=== PATIENT | male | born 1935 | race Caucasian/White ===

== ENCOUNTER 2016-06-04 10:36 | Emergency (ER) | payer OTHER ==
[~2016-06-04] VITALS: Ht 175.3 cm; Wt 66.0 kg
[2016-06-04 10:45] VITALS: BP 149/86; PULSE 72; RESP 16; TEMP 97.8; O2SAT 97
[2016-06-04] MEDS ORDERED: ALLO300T2 PO (10:53)
[2016-06-04] MEDS ORDERED: LEVO100T5 PO (10:53)
[2016-06-04] MEDS ORDERED: GABA400C5 PO (10:53)
[2016-06-04] MEDS ORDERED: MULTCAP13 PO (10:53)
--- NOTE | 2016-06-04 11:19 | PD ---
HPI Chief Complaint: Skin Problem Time Seen by Provider: 11:19 Travel History International Travel<30 days: No Contact w/Intl Traveler<30days: No Traveled to known affect area: No History of Present Illness HPI 81-year-old male with PMH of DM presents to the ED for evaluation of 2 day history of laceration of the right heel. Patient states that he is unsure when the wound occurred. He states that he has very little sensation in his foot secondary to diabetic neuropathy. He denies fever or chills. He is unsure of the date of his last tetanus immunization. He's been treating by keeping the wound clean, applying antibiotic ointment and soaking in Epsom salts no improvement of his symptoms. Patient does not see a net wpf developer. PFSH Past Medical History Diminished Hearing: No Gout: Yes Neurologic: Yes (neuropathy) Thyroid Disease: Yes Influenza Vaccination: Yes ?: Not Past Surgical History Surgical History: No Previous Surgery Social History Alcohol Use: Yes (occ) Tobacco Use: No Allergies-Medications (Allergen,Severity, Reaction): Coded Allergies: No Known Allergies (Unverified , 06/04/16) Reported Meds & Prescriptions Reported Meds & Active Scripts Active Clindamycin (Clindamycin HCl) 300 Mg Cap 300 Mg PO Q6H 7 Days Reported Allopurinol 300 Mg Tab 300 Mg PO DAILY Multi Complete (Multiple Vitamins W/ Minerals) 1 Cap Cap 1 Tab PO DAILY Levothyroxine (Levothyroxine Sodium) 100 Mcg Tab 100 Mcg PO DAILY Gabapentin 400 Mg Cap 400 Cap PO TID Review of Systems Except as stated in HPI: all other systems reviewed are Neg Physical Exam Narrative GENERAL: Well-nourished, well-developed white male appearing younger than his stated age in no acute distress. SKIN: Warm and dry. HEAD: Normocephalic. EYES: No scleral icterus. No injection or drainage. NECK: Supple, trachea midline. No JVD or lymphadenopathy. CARDIOVASCULAR: Regular rate and rhythm without murmurs, gallops, or rubs. RESPIRATORY: Breath sounds equal bilaterally. No accessory muscle use. GASTROINTESTINAL: Abdomen soft, non-tender, nondistended. MUSCULOSKELETAL: No cyanosis, or edema. FOCUSED RIGHT LOWER EXTREMITY EXAM: 2+ DP pulse. There is a 2 cm superficial laceration on the plantar aspect of the right heel. Surrounded by a small area of erythema. Mild tenderness to palpation. No warmth, active bleeding or discharge. Mild edema to the medial malleolus. No popliteal LAD. No limitation to ROM. Sensation intact to firm touch. Cap refill less than 2 seconds. BACK: Nontender without obvious deformity. No CVA tenderness. Data Data Last Documented VS Vital Signs Date Time Temp Pulse Resp B/P Pulse Ox O2 Delivery O2 Flow Rate FiO2 06/04/16 10:45 97.8 72 16 149/86 97 Orders Tetanus/Diphtheria Tox Adult (Tetanus/Di (06/04/16 11:30) MDM Medical Decision Making Medical Screen Exam Complete: Yes Emergency Medical Condition: Yes Differential Diagnosis laceration versus foreign body versus cellulitis versus other Narrative Course 81-year-old male with PMH of DM presents to the ED for evaluation of 2 day history of laceration of the right heel. Patient states that he is unsure when the wound occurred. He states that he has very little sensation in his foot secondary to diabetic neuropathy. He denies fever or chills. He is unsure of the date of his last tetanus immunization. He's been treating by keeping the wound clean, applying antibiotic ointment and soaking in Epsom salts no improvement of his symptoms. Vitals reviewed. Focused right lower extremity exam reveals a 2+ DP pulse. There is a 2 cm superficial laceration on the plantar aspect of the right heel surrounded by a small area of erythema. Mild tenderness to palpation. No warmth, active bleeding or discharge. Mild edema to the medial malleolus. No popliteal LAD. No limitation to ROM. Sensation intact to firm touch. Cap refill less than 2 seconds. This is cellulitis. Patient's tetanus immunization was updated. He is prescribed clindamycin 4 times a day 7 days. He is instructed to call his primary care provider for follow-up appointment today, continue symptomatic treatment, take all antibiotics as prescribed. We discussed reasons to return to the ED. He indicated understanding of instructions and is amenable to plan of care. This patient is stable and discharged home. Diagnosis Primary Impression: Laceration of right heel without complication Qualified Code: S91.311A - Laceration of right heel without complication, initial encounter Referrals: Primary Care Physician Patient Instructions: Diabetic Foot Ulcers (ED), General Instructions, Laceration (ED) Additional Instructions: Rest, hydrate. Keep the wound clean, dry and covered. Change the dressing anytime it becomes soiled or wet. Take the antibiotics as prescribed. Follow up with your primary care this week as discussed. Return to ED for any urgent or emergent medical condition. Med/Other Pt SpecificInfo: Prescription(s) given Scripts Clindamycin 300 Mg [id number] Mg PO Q6H 7 Days Ref 0 Prov:Winifred Emery MD 06/04/16 Disposition: 01 DISCHARGE HOME Condition: Stable Janette Martinez Jun 04, 2016 11:19
[2016-06-04] MEDS ORDERED: TETANUS/DIPHTHERIA TOXOID ADULT 0.5 ML VIAL IM ONE (11:30)
[2016-06-04] MEDS ORDERED: CLIN1CAP6 PO (11:33)
== END 2016-06-04 11:52 | disposition home or self-care (01) ==
LOC: PHEFT 10:36
DX: S91.311A Laceration without foreign body, right foot, initial encounter (principal); E11.21 Type 2 diabetes mellitus with diabetic nephropathy; M10.9 Gout, unspecified; X58.XXXA Exposure to other specified factors, initial encounter; Z23 Encounter for immunization
CPT/HCPCS: 90471; 90714